=== PATIENT | male | born 1975 | race Caucasian/White ===

== ENCOUNTER 2022-03-28 23:27 | Emergency (ER) | payer BC ==
[~2022-03-28] VITALS: Ht 182.9 cm; Wt 90.9 kg
[2022-03-29 00:37] LABS: BASO # 0.01 K/mm3 (0.02-0.10); EOS # 0.39 K/mm3 (0.04-0.40); EOS % 3.7 % (0.0-4.0); HEMATOCRIT 42.1 % (42.0-52.0); HEMOGLOBIN 13.9 g/dL (13.5-18.0); LYMPH# 1.56 K/mm3 (1.50-4.00); MEAN CELL VOLUME 89 fl (78-100); MEAN CORPUSCULAR HEMOGLOBIN 29 pg (27-31); MEAN CORPUSCULAR HGB CONC 33 g/dL (33-37); MEAN PLATELET VOLUME 8.8 fl (7.4-10.4); MONO # 0.97 K/mm3 (0.20-0.80); NEU # 7.52 K/mm3 (1.40-6.50); PLATELET COUNT 349 K/mm3 (130-400); RED BLOOD COUNT 4.72 M/mm3 (4.20-5.60); WHITE BLOOD COUNT 10.5 K/mm3 (4.8-10.8)
[2022-03-29 00:49] LABS: POTASSIUM 4.2 mmol/L (3.5-5.1)
[2022-03-29 00:50] LABS: CALCIUM 8.8 mg/dL (8.3-10.5)
[2022-03-29 00:51] LABS: TOTAL PROTEIN 6.9 g/dL (6.4-8.3)
[2022-03-29 00:53] LABS: TOTAL BILIRUBIN 0.5 mg/dL (0.2-1.2)
[2022-03-29 01:19] LABS: URINE APPEARANCE CLEAR; URINE BILIRUBIN NEGATIVE (NEGATIVE); URINE BLOOD 250 ery/uL (NEGATIVE); URINE COLOR YELLOW; URINE GLUCOSE NEGATIVE (NEGATIVE); URINE KETONE NEGATIVE (NEGATIVE); URINE LEUKOCYTE ESTERASE NEGATIVE (NEGATIVE); URINE NITRATE NEGATIVE (NEGATIVE); URINE PROTEIN(semi-quant) TRACE (NEGATIVE); URINE UROBILINOGEN NORMAL (NORMAL); URINE WBC 0-1 /hpf (0-3)
[2022-03-29 01:20] LABS: URINE MUCUS PRESENT (NOT PRESENT)
[2022-03-29] MEDS ORDERED: PERCOCET 325 MG1 TA2 PO (03:53)
[2022-03-29] MEDS ORDERED: ZOFRAN ODT4 MG PO (03:56)
[2022-03-29 04:06] VITALS: BP 113/78
== END 2022-03-29 04:06 | disposition home or self-care (01) ==
LOC: ED 23:27
PROVIDERS: Family Medicine
DX: K40.30 Unilateral inguinal hernia, with obstruction, without gangrene, not specified as recurrent (principal); Z87.19 Personal history of other diseases of the digestive system
CPT/HCPCS: J1885; J3010; Q9967